=== PATIENT | female | born 1965 | race Caucasian/White ===

== ENCOUNTER → 2016-08-22 | Outpatient (CLI) | payer MEDICARE ==
[~2016-08-22] MED LIST: ASPIR 8181 MG PO; CLARITIN10 MG PO; GABAPENTIN PO; HYDROCHLOROTHIA25 MG PO; IMURAN50 MG PO; KENALOG CREAM 015 GM EXT; MULTI-DAY VITA1 EACH PO; NORVASC 5 MG TAB5 MG PO; PANTOPRAZOLE SO40 MG PO; PLAQUENIL 200200 MG PO; PRAVASTATIN SOD40 MG PO; PREDNISONE10 MG PO; PROVENTIL HFA 61 INH INH; SYMBICORT 160-1 INHA INH; TYLENOL W/CODEIN1 E1 PO; VISTARIL25 MG PO; ZEBETA 5 MG TAB5 MG PO
[2016-08-22 09:57] LABS: HEMOGLOBIN 12.5 gm/dl (12.3-15.3); RED BLOOD COUNT 3.84 M/UL (4.00-5.10); WHITE BLOOD COUNT 3.7 K/UL (4.5-11.0)
[2016-08-22 10:17] LABS: BUN/CREATININE RATIO 17 (0-10)
== END ==
LOC: LAB 09:30
PROVIDERS: Emergency Medicine
DX: E78.2 Mixed hyperlipidemia (principal); I10 Essential (primary) hypertension; I25.10 Atherosclerotic heart disease of native coronary artery without angina pectoris; F17.210 Nicotine dependence, cigarettes, uncomplicated; E53.8 Deficiency of other specified B group vitamins; E55.9 Vitamin D deficiency, unspecified; M06.4 Inflammatory polyarthropathy; Z68.35 Body mass index [BMI] 35.0-35.9, adult; Z79.899 Other long term (current) drug therapy
CPT/HCPCS: 36415; 80053; 82607; 85027

== ENCOUNTER → 2020-05-01 | Outpatient (CLI) | payer MEDICARE, OTHER ==
[2020-05-01 11:03] LABS: HEMOGLOBIN 12.1 gm/dl (12.3-15.3); RED BLOOD COUNT 3.73 M/UL (4.00-5.10); WHITE BLOOD COUNT 5.5 K/UL (4.5-11.0)
[2020-05-01 11:21] LABS: BUN/CREATININE RATIO 14 (0-10)
== END ==
LOC: LAB 10:15
DX: M35.9 Systemic involvement of connective tissue, unspecified (principal); M15.0 Primary generalized (osteo)arthritis; M79.7 Fibromyalgia; D72.819 Decreased white blood cell count, unspecified; M47.816 Spondylosis without myelopathy or radiculopathy, lumbar region; Z68.37 Body mass index [BMI] 37.0-37.9, adult; Z72.0 Tobacco use; Z79.899 Other long term (current) drug therapy
CPT/HCPCS: 36415; 80053; 85027; 85652; 86140

== ENCOUNTER → 2020-06-19 | Outpatient (CLI) | payer MEDICARE, OTHER ==
[2020-06-19 12:33] LABS: HEMOGLOBIN 11.5 gm/dl (12.3-15.3); RED BLOOD COUNT 3.63 M/UL (4.00-5.10); WHITE BLOOD COUNT 4.1 K/UL (4.5-11.0)
[2020-06-19 12:59] LABS: BUN/CREATININE RATIO 13 (0-10)
[2020-06-20 20:08] LABS: CHOLESTEROL, TOTAL 189 mg/dL (100-199); HDL SIZE 8.7 nm (>=9.2); HDL-C 33 mg/dL (>39); HDL-P (TOTAL) 24.5 umol/L (>=30.5); LARGE HDL-P 2.2 umol/L (>=4.8); LDL-C 124 mg/dL (0-99); LDL-P 1680 nmol/L (<1000); LP-IR SCORE 83 (<=45); SMALL LDL-P 969 nmol/L (<=527); TRIGLYCERIDES 177 mg/dL (0-149); VLDL SIZE 54.6 nm (<=46.6)
== END ==
LOC: LAB 11:08
PROVIDERS: Emergency Medicine
DX: I10 Essential (primary) hypertension (principal); E78.2 Mixed hyperlipidemia; E53.8 Deficiency of other specified B group vitamins; E55.9 Vitamin D deficiency, unspecified; E04.1 Nontoxic single thyroid nodule; R53.83 Other fatigue; M35.9 Systemic involvement of connective tissue, unspecified; M15.0 Primary generalized (osteo)arthritis; D72.819 Decreased white blood cell count, unspecified; M47.816 Spondylosis without myelopathy or radiculopathy, lumbar region; Z72.0 Tobacco use; Z68.37 Body mass index [BMI] 37.0-37.9, adult; Z79.899 Other long term (current) drug therapy
CPT/HCPCS: 36415; 80053; 80061; 83704; 84443; 84550; 85025; 85652; 86140

== ENCOUNTER → 2020-06-26 | Outpatient (CLI) | payer MEDICARE, OTHER | LOC: CT 11:18 | DX: I10 Essential (primary) hypertension (principal); R53.83 Other fatigue; R06.02 Shortness of breath; I70.90 Unspecified atherosclerosis | CPT/HCPCS: 71275; Q9967 ==

== ENCOUNTER → 2021-02-18 | Outpatient (CLI) | payer MEDICARE, OTHER ==
[2021-02-18 10:05] LABS: HEMOGLOBIN 11.7 gm/dl (12.3-15.3); RED BLOOD COUNT 3.66 M/UL (4.00-5.10); WHITE BLOOD COUNT 3.8 K/UL (4.5-11.0)
[2021-02-18 10:28] LABS: BUN/CREATININE RATIO 18 (0-10)
[2021-02-20 13:13] LABS: CHOLESTEROL, TOTAL 204 mg/dL (100-199); HDL SIZE 8.6 nm (>=9.2); HDL-C 36 mg/dL (>39); HDL-P (TOTAL) 21.2 umol/L (>=30.5); LARGE HDL-P 1.3 umol/L (>=4.8); LARGE VLDL-P 4.6 nmol/L (<=2.7); LDL SIZE 21.1 nm (>20.5); LDL SIZE 21.1 nm (>=20.8); LDL-C 145 mg/dL (0-99); LDL-P 1751 nmol/L (<1000); LP-IR SCORE 72 (<=45); SMALL LDL-P 724 nmol/L (<=527); TRIGLYCERIDES 125 mg/dL (0-149); VLDL SIZE 49.1 nm (<=46.6)
== END ==
LOC: LAB 09:38
PROVIDERS: Emergency Medicine
DX: I10 Essential (primary) hypertension (principal); E78.2 Mixed hyperlipidemia
CPT/HCPCS: 36415; 80053; 80061; 83704; 84443; 84550; 85025

== ENCOUNTER → 2021-06-16 | Outpatient (CLI) | payer MEDICARE, OTHER | LOC: EXRD 13:50 | DX: M81.0 Age-related osteoporosis without current pathological fracture (principal); M15.8 Other polyosteoarthritis; Z79.899 Other long term (current) drug therapy | CPT/HCPCS: 77080 ==